=== PATIENT | female | born 1940 | race Caucasian/White ===

== ENCOUNTER 2020-09-26 23:02 | Observation (INO) | payer MEDICARE ==
--- NOTE | 2020-09-27 00:01 | ER Document Report ---
ED Medical Screen (RME) - General Chief Complaint: Fall Injury Stated Complaint: POSSIBLE CHEST INJURY Time Seen by Provider: 09/26/20 23:42 Mode of Arrival: Wheelchair Information source: Patient Notes: 80-year-old female presented to ED for complaint of fall with pain to her abdomen pelvis and chest. She states she fell landing against her dresser about 7 PM. She states she took her Xarelto at 6 PM. She states she has a history of high blood pressure cholesterol and TIA. She is having significant pain to the lower chest and upper abdomen. I did consult Dr. Avalos who recommended labs and a CT abdomen pelvis chest trauma protocol IV contrasted. He states this patient should not wait for the labs she needs to get the CT done promptly. I have greeted and performed a rapid initial assessment of this patient. A comprehensive ED assessment and evaluation of the patient, analysis of test results and completion of medical decision making process will be conducted by an additional ED providers. Physical Exam - Vital signs Vitals: Temp Pulse Resp BP Pulse Ox 99.1 F 148 H 24 H 157/101 H 99 09/27/20 00:05 09/27/20 00:05 09/27/20 00:05 09/27/20 00:05 09/27/20 00:05 Course - Vital Signs Vital signs: Temp Pulse Resp BP Pulse Ox 99.1 F 148 H 24 H 157/101 H 99 09/27/20 00:05 09/27/20 00:05 09/27/20 00:05 09/27/20 00:05 09/27/20 00:05
[2020-09-27 00:37] LABS: ABSOLUTE EOSINOPHILS # (AUTO) 0.1 10^3/uL (0.0-0.6); ABSOLUTE LYMPHOCYTES (AUTO) 1.1 10^3/uL (0.5-4.7); ABSOLUTE MONOCYTES (AUTO) 0.6 10^3/uL (0.1-1.4); ABSOLUTE NEUT (AUTO) 6.4 10^3/uL (1.7-8.2); BASOPHILS % (AUTO) 0.3 % (0-2); EOSINOPHILS % (AUTO) 1.4 % (0-6); HEMATOCRIT 38.1 % (36.0-47.0); HEMOGLOBIN 13.2 g/dL (12.0-15.5); LYMPHOCYTES % (AUTO) 13.7 % (13-45); MEAN CORPUSCULAR HEMOGLOBIN 31.4 pg (27.0-33.4); MEAN CORPUSCULAR HGB CONC 34.6 g/dL (32.0-36.0); MEAN CORPUSCULAR VOLUME 91 fl (80-97); MONOCYTES % (AUTO) 6.8 % (3-13); PLATELET COUNT 256 10^3/uL (150-450); RED BLOOD COUNT 4.19 10^6/uL (3.72-5.28); RED CELL DISTRIBUTION WIDTH 13.9 % (11.5-14.0); SEGMENTED NEUTROPHILS % (AUTO) 77.8 % (42-78); TOTAL CELLS COUNTED % (AUTO) 100 %; WHITE BLOOD COUNT 8.3 10^3/uL (4.0-10.5)
[2020-09-27 00:51] LABS: INTERNATIONAL RATION (INR) 2.03
[2020-09-27 00:52] LABS: PARTIAL THROMBOPLASTIN TIME 57.6 SEC (23.5-35.8)
[2020-09-27 00:57] LABS: ALBUMIN 4.3 g/dL (3.5-5.0); ALKALINE PHOSPHATASE 116 U/L (38-126); ANION GAP 10 (5-19); ASPARTATE AMINO TRANSFERASE 34 U/L (14-36); BILIRUBIN,DIRECT 0.3 mg/dL (0.0-0.4); BILIRUBIN,TOTAL 0.4 mg/dL (0.2-1.3); BLOOD UREA NITROGEN 14 mg/dL (7-20); CARBON DIOXIDE 28 mmol/L (22-30); CHLORIDE 100 mmol/L (98-107); GLUCOSE 139 mg/dL (75-110); POTASSIUM 4.2 mmol/L (3.6-5.0); TOTAL PROTEIN 7.8 g/dL (6.3-8.2)
--- NOTE | 2020-09-27 01:08 | RADIOLOGY REPORT (SQ) ---
CT chest, abdomen and pelvis with contrast on 09/27/2020 at 12:24 AM CLINICAL INDICATION: Fall, patient on blood thinners, per protocol for mechanism of injury TECHNIQUE: Multiple axial images are obtained throughout the chest, abdomen and pelvis following the administration of IV contrast. This exam was performed according to our departmental dose-optimization program, which includes automated exposure control, adjustment of the mA and/or kV according to patient size and/or use of iterative reconstruction technique. Total DLP is 683.63 mGy*cm. COMPARISON: None FINDINGS: CHEST: Coronary artery calcifications and other vascular calcifications are noted. Cardiomegaly is noted. There is no pleural or pericardial effusion. The patient is status post right mastectomy. Mild opacity in the anterior right lung likely represents mild post radiation changes. Emphysematous changes of the lungs are noted. There is nodular opacity in the medial anterior right upper lobe seen well on coronal images 29 through 34. While this may represent a nodular area of atelectasis and/or scarring, malignant etiology is not excluded especially in this patient with presumed prior history of right breast cancer. Correlation with any of the patient's old imaging or short-term follow-up will be recommended. This measures approximately 1.3 x 1.1 cm on coronal image 31 and therefore should be large enough for PET/CT if indicated. There is mild bilateral dependent and basilar atelectasis. There is also somewhat of a nodular opacity in the anterior right upper lobe seen best on axial image 12 and coronal image 41. This also could represent an area of nodular atelectasis or scarring but also needs correlation with any of the patient's old imaging and/or appropriate follow-up. There is also a 6 mm nodule in the right lower lobe seen best on coronal image 65 that also will need correlation with the patient's old imaging and appropriate follow-up. The lungs are otherwise clear. There is no thoracic adenopathy by CT size criteria. There is no mediastinal hemorrhage or evidence of aortic injury. Degenerative changes are noted in the right shoulder. No acute bony abnormality of the thorax is noted. ABDOMEN: A few small hepatic cysts are noted. Small bilateral renal cysts are noted. Vascular calcifications are noted. Solid abdominal organs are otherwise unremarkable. There is no abdominal adenopathy. There is no free fluid or free air within the abdomen. The abdominal portion of the GI tract is unremarkable. Pelvis: Pelvic organs appear unremarkable by CT. No free fluid is noted in the pelvis. There is no pelvic adenopathy. There is diverticulosis. The pelvic portion of the GI tract including the appendix is otherwise unremarkable. Degenerative changes are noted in the spine. There is grade 1 spondylolisthesis at L3-4 and L4-5 secondary to degenerative facet disease. There are sclerotic lesions within T6, T7, T12, L2 and L4 that are worrisome for bony metastatic disease. It is unknown if this is treated or active disease and again correlation with any of the patient's old imaging or appropriate follow-up is recommended. No acute bony abnormality is noted. IMPRESSION: 1. No evidence of acute traumatic injury in the chest, abdomen or pelvis. 2. Findings in the lungs and bones as above that may be related to the patient's presumed history of prior right breast malignancy. Recommend appropriate follow-up with correlation with any of the patient's prior imaging or short-term follow-up imaging to include possibly PET/CT if indicated. 3. Diverticulosis. 4. Emphysema.
[2020-09-27] MEDS ORDERED: NORMAL SALINE 1000 ML 1,000 ML IV ONE (02:11)
[2020-09-27] MEDS ORDERED: HYDROCODONE/ACETAMINOPHEN 5-325 MG TABLET PO ONE (02:11)
[2020-09-27] MEDS ORDERED: MORPHINE SULFATE 10 MG/ML INJ IV ONE (02:17)
[2020-09-27] MEDS ORDERED: ONDANSETRON HCL INJ/PF 4 MG/2 ML SDV IV ONE (02:17)
[2020-09-27 02:21] LABS: APPEARANCE,URINE CLEAR; BILIRUBIN,URINE NEGATIVE (NEGATIVE); COLOR,URINE YELLOW; GLUCOSE, URINE NEGATIVE (NEGATIVE); KETONES,URINE NEGATIVE (NEGATIVE); LEUKOCYTE ESTERASE,URINE NEGATIVE (NEGATIVE); NITRITE,URINE NEGATIVE (NEGATIVE); PROTEIN,URINE NEGATIVE (NEGATIVE); URINE SPECIFIC GRAVITY 1.032; UROBILINOGEN,URINE NEGATIVE mg/dL (<2.0)
--- NOTE | 2020-09-27 02:23 | ER Document Report ---
ED Fall - General Chief Complaint: Fall Stated Complaint: POSSIBLE CHEST INJURY Time Seen by Provider: 09/26/20 23:42 Mode of Arrival: Wheelchair Information source: Patient Notes: 80-year-old female presents to ED for complaint of fall at home. She states she fell landing on her lower chest upper abdomen. She states she fell landing against a dresser about 7 PM. She states she had already taken her Xarelto about 6 PM. She does have a history of high blood pressure A. fib cholesterol a nd TIA. We will get a CT IV contrasted chest abdomen and pelvis which did not show any new traumatic injuries. It did show some nodules in the lungs that patient states she already knew about. She does have a history of breast cancer with a right mastectomy and was moved to this area from [place] so that her daughter could monitor her and help her to get help with the possible metastatic disease. Patient is alert oriented respirations regular nonlabored speaking in full sentences. Her heart rate is running in the 140s to 150s. I have ordered morphine 4 mg, Zofran 4 mg, and IV fluids. I have also ordered Roberta. I did discuss all of this with Dr. Avalos. He stated if we can get her right down in the 80s to 90s that she can go home but that if we cannot she may need to be admitted. Constitutional: Negative for fever. HENT: Negative for sore throat. Eyes: Negative for visual changes. Cardiovascular: Pain to the lower chest upper abdomen from her fall. She does have bruises to the sternal area of her chest. She is in A. fib at a rate of 148 fluctuating between 135 and 160 on the monitor while I was in the room. Respiratory: Negative for shortness of breath. Gastrointestinal: She states she has had some upper abdominal pain. There is no acute changes on the CT of the abdomen pelvis Genitourinary: Negative for dysuria. Musculoskeletal: Patient does not complain of any pain in the back but she does have some degenerative changes noted on the CT Skin: She does states she has bruising to the chest area and there is some mild bruising to the sternal area of the chest Neurological: Negative for headaches, weakness or numbness. 10 point ROS negative except as marked above and in HPI. VITAL SIGNS: Within normal limits. GENERAL: No acute distress, non-toxic appearance. HEAD: Normal with no signs of head trauma. EYES: PERRLA, EOMI, conjunctiva normal, no discharge. EARS: Hearing grossly intact. NOSE: Normal. THROAT: Oropharynx is normal. NECK: Normal range of motion, no tenderness, supple, no lymphadenopathy, No adenopathy, no JVD. CHEST: Clear breath sounds bilaterally. No wheezes, rales, or rhonchi. CARDIAC: Atrial fibrillation between 135-170 she is tender to palpation. She does have a right mastectomy old site. She is in significant tenderness from the fall ABDOMEN: Abdomen tender to palpation but it is soft no bruises noted on the abdomen no pulsatile masses noted GASTROINTESTINAL: Bowel sounds normal GENITOURINARY: Normal, No tenderness LYMPATHTIC: No lymphadenopathy noted. MUSCULOSKELETAL: Good range of motion of all major joints. Extremities without clubbing, cyanosis or edema. NEUROLOGICAL: Alert and oriented x 3. No focal sensory or strength deficits. Speech normal. Follows commands appropriately. PSYCHIATRIC: Normal Affect, judgement and mood. SKIN: Mild bruising noted to the sternal area from her fall TRAVEL OUTSIDE OF THE [place] IN LAST 30 DAYS: No - HPI Occurred: This evening - 7 PM Where: Home, Indoors Context: Tripped Associated symptoms: None Location of injury/pain: Abdomen, Chest, Pelvic Quality of pain: Sharp Pain Level: 4 - Related data Allergies/Adverse Reactions: No Known Allergies Allergy (Verified 09/27/20 04:55) Home Medications: xarelto Past Medical History - General Information source: Patient - Social History Smoking Status: Former Smoker Chew tobacco use (# tins/day): No Drug Abuse: None Lives with: Family Family History: Reviewed & Not Pertinent Patient has suicidal ideation: No Patient has homicidal ideation: No - Past Medical History Cardiac Medical History: Reports: Hx Atrial Fibrillation, Hx Hypercholesterolemia, Hx Hypertension Pulmonary Medical History: Reports: Hx COPD, Hx Pneumonia EENT Medical History: Reports: None Neurological Medical History: Reports: Hx Migraine, Other - TIA Endocrine Medical History: Reports: None Renal/ Medical History: Reports: None Malignancy Medical History: Reports: Hx Breast Cancer - Right mastectomy GI Medical History: Reports: None Musculoskeletal Medical History: Reports Hx Arthritis, Reports Hx Musculoskeletal Trauma Skin Medical History: Reports None Psychiatric Medical History: Reports: None Traumatic Medical History: Reports: None Infectious Medical History: Reports: None Past Surgical History: Reports: Hx Breast Surgery, Hx Mastectomy Physical Exam - Vital signs Vitals: Temp Pulse Resp BP Pulse Ox 99.1 F 148 H 24 H 157/101 H 99 09/27/20 00:05 09/27/20 00:05 09/27/20 00:05 09/27/20 00:05 09/27/20 00:05 Course - Re-evaluation Re-evalutation: 09/27/20 08:10 Discussed labs assessment and pulse rate with Dr. Avalos. He did recommend CT abdomen pelvis just after explaining that she does not have pain to the abdomen and chest with a pulse of 148 and history of A. fib. The abdomen pelvis and chest did not show any acute changes she was treated with metoprolol IV x2 for her A. fib with RVR and the rate was able to come down to 106. I did call the hospitalist he did agree he will come down and evaluate the patient. When he did come down and evaluate the patient he stated he would admit the patient. He was admitted to telemetry. This patient had just recently moved from [place] to this area to live with her daughter creasing health conditions. Not established with a lens silverer as yet. She also needs to establish with an oncologist for her history of breast cancer with positive nodules in the lungs. These were discussed with Dr. Mueller. - Vital Signs Vital signs: Temp Pulse Resp BP Pulse Ox 99.1 F 148 H 23 H 120/92 H 93 09/27/20 00:05 09/27/20 00:05 09/27/20 05:07 09/27/20 05:07 09/27/20 05:07 - Laboratory Results Result Diagrams: 09/27/20 00:13 09/27/20 00:13 Laboratory Results Interpreted: 09/27/20 09/27/20 00:13 00:13 PT 23.0 H APTT 57.6 H Glucose 139 H Critical Laboratory Results Reviewed: No Critical Results - Radiology Results Critical Radiology Results Reviewed: No Critical Results Discharge - Discharge Clinical Impression: Atrial fibrillation with RVR, History of TIA (transient ischemic attack), History of breast cancer Fall Qualifiers: Encounter type: initial encounter Qualified Code(s): W19.XXXA - Unspecified fall, initial encounter Hypertension Qualifiers: Hypertension type: unspecified Qualified Code(s): I10 - Essential (primary) hypertension Chest wall contusion Qualifiers: Encounter type: initial encounter Laterality: unspecified laterality Qualified Code(s): S20.219A - Contusion of unspecified front wall of thorax, initial encounter Disposition: ADMITTED INPATIENT Admitting Provider: [facility] Unit Admitted: Telemetry
[2020-09-27] MEDS ORDERED: METOPROLOL TARTRATE PF/INJ 5 MG/5 ML SDV IV ONE ×2 (03:51→04:40)
[2020-09-27] MEDS ORDERED: OXYCODONE-ACETAMINOPHEN 5-325 MG TABLET PO PRN (05:54)
[2020-09-27] MEDS ORDERED: ONDANSETRON HCL INJ/PF 4 MG/2 ML SDV IV PRN ×2 (05:54→10:00)
[2020-09-27] MEDS ORDERED: ACETAMINOPHEN 325 MG TABLET PO PRN (05:54)
--- NOTE | 2020-09-27 06:18 | PDOC H&P ---
History of Present Illness Admission Date/PCP: THOM GARZA MD Patient complains of: Fall History of Present Illness: KUNAL ABEBE is a 80 year old female with a history of TIA, A. fib, hyperlipidemia, hypertension and breast cancer status post right mastectomy now presents to the ED after she had a fall last night while trying to put on her pajama. She states that she tripped and fell on a dresser and heart hair anterior chest and abdominal area. She denies any dizziness/lightheadedness, chest pain, palpitation or shortness of breath prior to fall. She states that she occasionally feels racing of her heart but currently denies any palpitation. She feels pain around here anterior lower chest and epigastric area when she takes a deep breath or cough. She denies any nausea, vomiting, diarrhea, or any change in her urinary habits. She states that she is compliant with her medication. On arrival to the ED patient was found to be A. fib with RVR with a heart rate in the 140s and 150s. She was given metoprolol 5 mg IV x2 improved here heart rate to the 110s. Currently she denies any dizziness, palpitation, chest pain apart from the injury site. Patient moved from [place] and is new to the area. Past Medical History Cardiac Medical History: Reports: Atrial Fibrillation, Hyperlipidema, Hyper tension Pulmonary Medical History: Reports: Chronic Obstructive Pulmonary Disease (COPD), Pneumonia EENT Medical History: Reports: None Neurological Medical History: Reports: Migraine, Other - TIA Endocrine Medical History: Reports: None Renal/ Medical History: Reports: None Malignancy Medical History: Reports: Breast Cancer - Right mastectomy GI Medical History: Reports: None Musculoskeltal Medical History: Reports: Arthritis Skin Medical History: Reports: None Psychiatric Medical History: Reports: None Traumatic Medical History: Reports: None Infectious Medical History: Reports: None Past Surgical History Past Surgical History: Reports: Mastectomy Social History Information Source: Patient Lives with: Family Smoking Status: Former Smoker Electronic Cigarette use?: No Frequency of Alcohol Use: Occasional Hx Recreational Drug Use: No Drugs: None - Advance Directive Resuscitation Status: Full Code Family History Family History: Reviewed & Not Pertinent Parental Family History Reviewed: Yes Children Family History Reviewed: Yes Sibling(s) Family History Reviewed.: Yes Medication/Allergy Allergies/Adverse Reactions: No Known Allergies Allergy (Verified 09/27/20 04:55) Review of Systems Constitutional: ABSENT: chills, fever(s), headache(s), weight gain, weight loss Eyes: ABSENT: visual disturbances Ears: ABSENT: hearing changes Nose, Mouth, and Throat: ABSENT: headache(s), mouth pain, sore throat Cardiovascular: ABSENT: dyspnea on exertion, edema, orthropnea, palpitations Respiratory: ABSENT: cough, hemoptysis Gastrointestinal: ABSENT: constipation, diarrhea, hematemesis, hematochezia, nausea, vomiting Genitourinary: ABSENT: dysuria, hematuria Musculoskeletal: ABSENT: joint swelling Integumentary: ABSENT: rash, wounds Neurological: ABSENT: abnormal gait, abnormal speech, confusion, dizziness, focal weakness, syncope Psychiatric: ABSENT: anxiety, depression, homidical ideation, suicidal ideation Endocrine: ABSENT: cold intolerance, heat intolerance, polydipsia, polyuria Hematologic/Lymphatic: ABSENT: easy bleeding, easy bruising Physical Exam Vital Signs: Temp Pulse Resp BP Pulse Ox 99.1 F 148 H 23 H 120/92 H 93 09/27/20 00:05 09/27/20 00:05 09/27/20 05:07 09/27/20 05:07 09/27/20 05:07 Intake & Output 09/25/20 09/26/20 09/27/20 06:59 06:59 06:59 Intake Total 1000 Balance 1000 Weight 43.3 kg Additional comments: GENERAL APPEARANCE: Alert and oriented x3, in no acute distress HEENT: Normocephalic and atraumatic. No scleral icterus. Moist oral mucosa NECK: Supple. No lymphadenopathy or tenderness. No carotid bruit. No JVD CHEST: Symmetric. Has mild tenderness to palpation at lower sternal area LUNGS: Clear with good air entry bilaterally. No wheezing or crackles HEART: Irregularly irregular rhythm, tachycardic with normal S1 and S2. No murmurs, gallops, or rubs. ABDOMEN: Flat, soft, active bowel sounds, has mild tenderness around epigastric area and lower sternal normal guarding, rigidity or or rebound tenderness. No organomegaly detected. EXTREMITIES: No cyanosis, clubbing, or edema. MUSCULOSKELETAL: No deformity, atrophy or swelling noted PSYCHIATRIC: Recent and remote memory is intact. Appropriate mood and affect. SKIN: Warm, dry, and well perfused. No lesions or rashes are noted. NEUROLOGIC: No focal sensory or motor deficits are noted. Results Laboratory Results: 09/27/20 00:13 09/27/20 00:13 09/27/20 09/27/20 09/27/20 00:13 00:13 01:43 WBC 8.3 RBC 4.19 Hgb 13.2 Hct 38.1 MCV 91 MCH 31.4 MCHC 34.6 RDW 13.9 Plt Count 256 Seg Neutrophils % 77.8 Sodium 138.3 Potassium 4.2 Chloride 100 Carbon Dioxide 28 Anion Gap 10 BUN 14 Creatinine 0.73 Est GFR ( Amer) > 60 Glucose 139 H Calcium 10.0 Total Bilirubin 0.4 AST 34 Alkaline Phosphatase 116 Total Protein 7.8 Albumin 4.3 Urine Color YELLOW Urine Appearance CLEAR Urine pH 7.0 Ur Specific [place] 1.032 Urine Protein NEGATIVE Urine Glucose (UA) NEGATIVE Urine Ketones NEGATIVE Urine Blood NEGATIVE Urine Nitrite NEGATIVE Ur Leukocyte Esterase NEGATIVE Urine WBC (Auto) 0 Urine RBC (Auto) 0 Impressions: Abdomen/Pelvis CT 09/26/20 23:51 IMPRESSION: 1. No evidence of acute traumatic injury in the chest, abdomen or pelvis. 2. Findings in the lungs and bones as above that may be related to the patient's presumed history of prior right breast malignancy. Recommend appropriate follow-up with correlation with any of the patient's prior imaging or short-term follow-up imaging to include possibly PET/CT if indicated. 3. Diverticulosis. 4. Emphysema. Chest CT 09/26/20 23:51 IMPRESSION: 1. No evidence of acute traumatic injury in the chest, abdomen or pelvis. 2. Findings in the lungs and bones as above that may be related to the patient's presumed history of prior right breast malignancy. Recommend appropriate follow-up with correlation with any of the patient's prior imaging or short-term follow-up imaging to include possibly PET/CT if indicated. 3. Diverticulosis. 4. Emphysema. Assessment and Plan - Diagnosis (1) Atrial fibrillation with RVR Is this a current diagnosis for this admission?: Yes Plan: Patient currently presents after sustaining a fall Denies any dizziness or chest pain apart from the site of injury On presentation EKG showed A. fib with RVR with heart rate of 145 Was given metoprolol 5 mg IV x2 at the ED and heart rate improved to 110s Start the patient on 25 mg metoprolol every 6 hourly Will readjust the dose of metoprolol depending of the level of rate control Follow-up with troponins, TSH level (2) Fall Qualifiers: Encounter type: initial encounter Qualified Code(s): W19.XXXA - Unspecified fall, initial encounter Is this a current diagnosis for this admission?: Yes Plan: Appears to be a mechanical fall, patient reports and fell down when changing clothing Still reports lower sternal and epigastric area pain CT chest, abdomen and pelvis showed no acute traumatic findings Pain likely contributing to elevated heart rate Controlled pain with Percocet 5 mg every 6 hourly as needed (3) Hypertension Qualifiers: Hypertension type: unspecified Qualified Code(s): I10 - Essential (primary) hypertension Is this a current diagnosis for this admission?: Yes Plan: Currently blood pressure is well controlled We will continue lisinopril at home dose Currently on metoprolol for A. fib to control rate Continue monitoring vital signs and low-salt diet (4) Hyperlipidemia Is this a current diagnosis for this admission?: Yes Plan: Continue atorvastatin (5) History of TIA (transient ischemic attack) Is this a current diagnosis for this admission?: Yes Plan: Currently has no any focal neurologic deficits Continue aspirin and statin for secondary prevention (6) History of breast cancer Is this a current diagnosis for this admission?: Yes Plan: Status post right mastectomy 17 years back Currently has no sign of recurrence - Time Time Spent with patient: 35 or more minutes Total Critical Time (Minutes): 45 Medications reviewed and adjusted accordingly: Yes Anticipated Discharge Disposition: Home, Self Care Anticipated Discharge Timeframe: within 48 hours - Inpatient Certification Based on my medical assessment, after consideration of the patient's comorbidities, presenting symptoms, or acuity I expect that the services needed warrant INPATIENT care.: Yes I certify that my determination is in accordance with my understanding of Medicare's requirements for reasonable and necessary INPATIENT services [42 CFR 412.3e].: Yes Medical Necessity: Significant Comorbidiites Make Outpatient Treatment Too Risky, Need For Continuous Telemetry Monitoring, Need for Pain Control, Risk of Complication if Not Cared For in Hospital Post Hospital Care: D/C or Transfer Summary
[2020-09-27] MEDS: METOPROLOL TARTRATE 25 MG TABLET PO SCH ×3 (06:40→17:22)
--- NOTE | 2020-09-27 07:53 | EKG REPORT ---
SEVERITY:- ABNORMAL ECG - ATRIAL FIBRILLATION, V-RATE 116-172 : Confirmed by: Akash Estrada 27-Sep-2020 07:53:23
[2020-09-27] MEDS: LISINOPRIL 10 MG TABLET PO SCH (09:04)
[2020-09-27] MEDS: FAMOTIDINE 20 MG TABLET PO SCH (09:04)
[2020-09-27] MEDS: CHOLECALCIFEROL (D3) 1,000 UNIT (25 MCG) TABLET PO SCH (09:04)
[2020-09-27] MEDS: CALCIUM CARBONATE 600 MG TABLET PO SCH (09:04)
[2020-09-27] MEDS ORDERED: RIVAROXABAN 10 MG TABLET PO SCH (17:00)
--- NOTE | 2020-09-27 19:45 | PDOC PROGRESS REPORT ---
Subjective Date:: 09/27/20 Subjective:: Patient was seen and examined at bedside, still has chest wall pain from where s he hit her chest during the fa. No chest heaviness, no palpitations. Afebrile, good appetite Reason For Visit: FALL,AFIB WITH RVR,HISTORY OF TIA,HISTORY BREAST Physical Exam Vital Signs: Temp Pulse Resp BP Pulse Ox 98.3 F 118 H 18 132/94 H 96 09/27/20 16:55 09/27/20 16:55 09/27/20 16:55 09/27/20 16:55 09/27/20 16:55 Intake & Output 09/26/20 09/27/20 09/28/20 06:59 06:59 06:59 Intake Total 1000 1000 Balance 1000 1000 Weight 43.3 kg General appearance: PRESENT: no acute distress, cooperative Head exam: PRESENT: atraumatic, normocephalic Eye exam: PRESENT: EOMI, PERRLA Mouth exam: PRESENT: moist Neck exam: PRESENT: full ROM Respiratory exam: PRESENT: clear to auscultation liam, symmetrical, unlabored Cardiovascular exam: PRESENT: irregular rhythm, +S1, +S2, other - chest wall tenderness Pulses: PRESENT: +2 pedal pulses bilateral GI/Abdominal exam: PRESENT: normal bowel sounds, soft. ABSENT: rebound, tenderness Extremities exam: PRESENT: full ROM Musculoskeletal exam: PRESENT: full ROM Neurological exam: PRESENT: alert, oriented to person, oriented to place, oriented to time, oriented to situation Skin exam: PRESENT: normal color Results Laboratory Results: 09/27/20 00:13 09/27/20 00:13 09/27/20 09/27/20 09/27/20 00:13 00:13 00:13 WBC 8.3 RBC 4.19 Hgb 13.2 Hct 38.1 MCV 91 MCH 31.4 MCHC 34.6 RDW 13.9 Plt Count 256 Seg Neutrophils % 77.8 Sodium 138.3 Potassium 4.2 Chloride 100 Carbon Dioxide 28 Anion Gap 10 BUN 14 Creatinine 0.73 Est GFR ( Amer) > 60 Glucose 139 H Calcium 10.0 Total Bilirubin 0.4 AST 34 Alkaline Phosphatase 116 Total Protein 7.8 Albumin 4.3 TSH 2.95 Urine Color Urine Appearance Urine pH Ur Specific [place] Urine Protein Urine Glucose (UA) Urine Ketones Urine Blood Urine Nitrite Ur Leukocyte Esterase Urine WBC (Auto) Urine RBC (Auto) 09/27/20 01:43 WBC RBC Hgb Hct MCV MCH MCHC RDW Plt Count Seg Neutrophils % Sodium Potassium Chloride Carbon Dioxide Anion Gap BUN Creatinine Est GFR ( Amer) Glucose Calcium Total Bilirubin AST Alkaline Phosphatase Total Protein Albumin TSH Urine Color YELLOW Urine Appearance CLEAR Urine pH 7.0 Ur Specific [place] 1.032 Urine Protein NEGATIVE Urine Glucose (UA) NEGATIVE Urine Ketones NEGATIVE Urine Blood NEGATIVE Urine Nitrite NEGATIVE Ur Leukocyte Esterase NEGATIVE Urine WBC (Auto) 0 Urine RBC (Auto) 0 09/27/20 09/27/20 00:13 00:13 Creatine Kinase 43 Troponin I < 0.012 Impressions: Abdomen/Pelvis CT 09/26/20 23:51 IMPRESSION: 1. No evidence of acute traumatic injury in the chest, abdomen or pelvis. 2. Findings in the lungs and bones as above that may be related to the patient's presumed history of prior right breast malignancy. Recommend appropriate follow-up with correlation with any of the patient's prior imaging or short-term follow-up imaging to include possibly PET/CT if indicated. 3. Diverticulosis. 4. Emphysema. Chest CT 09/26/20 23:51 IMPRESSION: 1. No evidence of acute traumatic injury in the chest, abdomen or pelvis. 2. Findings in the lungs and bones as above that may be related to the patient's presumed history of prior right breast malignancy. Recommend appropriate follow-up with correlation with any of the patient's prior imaging or short-term follow-up imaging to include possibly PET/CT if indicated. 3. Diverticulosis. 4. Emphysema. Assessment and Plan - Diagnosis (1) Atrial fibrillation with RVR Is this a current diagnosis for this admission?: Yes Plan: Improved HR 115 Patient currently presents after sustaining a fall Denies any dizziness or chest pain apart from the site of injury On presentation EKG showed A. fib with RVR with heart rate of 145 Was given metoprolol 5 mg IV x2 at the ED and heart rate improved to 110s Start the patient on 25 mg metoprolol every 6 hourly Will readjust the dose of metoprolol depending of the level of rate control troponin negative Possible discharge tomorrow (2) Fall Qualifiers: Encounter type: initial encounter Qualified Code(s): W19.XXXA - Unspecified fall, initial encounter Is this a current diagnosis for this admission?: Yes Plan: Appears to be a mechanical fall, patient reports and fell down when changing clothing Still reports lower sternal and epigastric area pain CT chest, abdomen and pelvis showed no acute traumatic findings Pain likely contributing to elevated heart rate Controlled pain with Percocet 5 mg every 6 hourly as needed (3) History of TIA (transient ischemic attack) Is this a current diagnosis for this admission?: Yes Plan: Currently has no any focal neurologic deficits Continue aspirin and statin for secondary prevention (4) History of breast cancer Is this a current diagnosis for this admission?: Yes Plan: Status post right mastectomy 17 years back Currently has no sign of recurrence (5) Hyperlipidemia Is this a current diagnosis for this admission?: Yes Plan: Continue atorvastatin (6) Hypertension Qualifiers: Hypertension type: unspecified Qualified Code(s): I10 - Essential (primary) hypertension Is this a current diagnosis for this admission?: Yes Plan: Currently blood pressure is well controlled We will continue lisinopril at home dose Currently on metoprolol for A. fib to control rate Continue monitoring vital signs and low-salt diet - Time Time Spent with patient: 15-24 minutes Medications reviewed and adjusted accordingly: Yes Anticipated Discharge Disposition: Home, Self Care Anticipated Discharge Timeframe: within 24 hours
[2020-09-27] MEDS ORDERED: ATORVASTATIN CALCIUM 20 MG TABLET PO SCH (22:00)
[2020-09-28] MEDS: METOPROLOL TARTRATE 25 MG TABLET PO SCH ×2 (00:18→06:05)
[2020-09-28] MEDS: FAMOTIDINE 20 MG TABLET PO SCH ×2 (00:18→09:12)
[2020-09-28 05:15] LABS: ABSOLUTE EOSINOPHILS # (AUTO) 0.1 10^3/uL (0.0-0.6); ABSOLUTE LYMPHOCYTES (AUTO) 1.5 10^3/uL (0.5-4.7); ABSOLUTE MONOCYTES (AUTO) 0.6 10^3/uL (0.1-1.4); ABSOLUTE NEUT (AUTO) 3.1 10^3/uL (1.7-8.2); BASOPHILS % (AUTO) 0.6 % (0-2); EOSINOPHILS % (AUTO) 1.1 % (0-6); HEMATOCRIT 35.7 % (36.0-47.0); HEMOGLOBIN 12.3 g/dL (12.0-15.5); LYMPHOCYTES % (AUTO) 29.3 % (13-45); MEAN CORPUSCULAR HEMOGLOBIN 31.6 pg (27.0-33.4); MEAN CORPUSCULAR HGB CONC 34.5 g/dL (32.0-36.0); MEAN CORPUSCULAR VOLUME 92 fl (80-97); MONOCYTES % (AUTO) 11.2 % (3-13); PLATELET COUNT 219 10^3/uL (150-450); RED BLOOD COUNT 3.89 10^6/uL (3.72-5.28); RED CELL DISTRIBUTION WIDTH 14.1 % (11.5-14.0); SEGMENTED NEUTROPHILS % (AUTO) 57.8 % (42-78); TOTAL CELLS COUNTED % (AUTO) 100 %; WHITE BLOOD COUNT 5.3 10^3/uL (4.0-10.5)
[2020-09-28 05:36] LABS: ANION GAP 6 (5-19); BLOOD UREA NITROGEN 13 mg/dL (7-20); CALCIUM 9.2 mg/dL (8.4-10.2); CARBON DIOXIDE 28 mmol/L (22-30); CHLORIDE 102 mmol/L (98-107); GLUCOSE 110 mg/dL (75-110); POTASSIUM 4.2 mmol/L (3.6-5.0)
[2020-09-28] MEDS ORDERED: AMLODIPINE BESYLATE 10 MG TABLET PO ONE (09:00)
[2020-09-28] MEDS: LISINOPRIL 10 MG TABLET PO SCH (09:11)
[2020-09-28] MEDS: CHOLECALCIFEROL (D3) 1,000 UNIT (25 MCG) TABLET PO SCH (09:11)
[2020-09-28] MEDS: CALCIUM CARBONATE 600 MG TABLET PO SCH (09:12)
[2020-09-28] MEDS ORDERED: METOPROLOL TARTRATE PF/INJ 5 MG/5 ML SDV IV ONE (09:13)
[2020-09-28 10:06] VITALS: BP 144/83
--- NOTE | 2020-09-28 17:20 | PDOC DISCHARGE SUMMARY ---
Impression - Admit/DC Date/PCP Admission Date/Primary Care Provider: 09/27/20 06:30 THOM GARZA MD Discharge Date: 09/28/20 - Discharge Diagnosis (1) Atrial fibrillation with RVR Is this a current diagnosis for this admission?: Yes (2) Fall Is this a current diagnosis for this admission?: Yes (3) History of TIA (transient ischemic attack) Is this a current diagnosis for this admission?: Yes (4) History of breast cancer Is this a current diagnosis for this admission?: Yes (5) Hyperlipidemia Is this a current diagnosis for this admission?: Yes (6) Hypertension Is this a current diagnosis for this admission?: Yes - Assessment Summary: (1) Atrial fibrillation with RVR Is this a current diagnosis for this admission?: Yes Plan: Improved HR 115 Patient currently presents after sustaining a fall Denies any dizziness or chest pain apart from the site of injury On presentation EKG showed A. fib with RVR with heart rate of 145 Was given metoprolol 5 mg IV x2 at the ED and heart rate improved to 110s Start the patient on 25 mg metoprolol every 6 hourly Will readjust the dose of metoprolol depending of the level of rate control troponin negative Possible discharge tomorrow (2) Fall Qualifiers: Encounter type: initial encounter Qualified Code(s): W19.XXXA - Unspecified fall, initial encounter Is this a current diagnosis for this admission?: Yes Plan: Appears to be a mechanical fall, patient reports and fell down when changing clothing Still reports lower sternal and epigastric area pain CT chest, abdomen and pelvis showed no acute traumatic findings Pain likely contributing to elevated heart rate Controlled pain with Percocet 5 mg every 6 hourly as needed (3) History of TIA (transient ischemic attack) Is this a current diagnosis for this admission?: Yes Plan: Currently has no any focal neurologic deficits Continue aspirin and statin for secondary prevention (4) History of breast cancer Is this a current diagnosis for this admission?: Yes Plan: Status post right mastectomy 17 years back Currently has no sign of recurrence (5) Hyperlipidemia Is this a current diagnosis for this admission?: Yes Plan: Continue atorvastatin (6) Hypertension Qualifiers: Hypertension type: unspecified Qualified Code(s): I10 - Essential (primary) hypertension Is this a current diagnosis for this admission?: Yes Plan: Currently blood pressure is well controlled We will continue lisinopril at home dose Currently on metoprolol for A. fib to control rate Continue monitoring vital signs and low-salt diet - Additional Information Resuscitation Status: Full Code Discharge Diet: As Tolerated Discharge Activity: Activity As Tolerated Referrals: THOM GARZA MD [Primary Care Provider] - 09/29/20 3:15 pm Prescriptions: Carvedilol Phosphate [Carvedilol ER] 40 mg PO DAILY 30 Days #30 tab Home Medications: Alendronate Sodium 70 mg PO MO 09/27/20 Atorvastatin Calcium [Lipitor 20 mg Tablet] 20 mg PO DAILY 09/27/20 Calcium Carbonate [Calcium] 600 mg PO DAILY 09/27/20 Cholecalciferol (Vitamin D3) [Vitamin D3 1000 Unit Tablet] 2,000 unit PO DAILY 09/27/20 Latanoprost [Xalatan] 1 drop OU DAILY 09/27/20 Lisinopril 20 mg PO DAILY 09/27/20 Rivaroxaban [Xarelto 10 mg Tablet] 20 mg PO DAILY 09/27/20 Timolol Maleate/Pf [Timolol Maleate 0.5% Eye Drop] 1 drop OU BID 09/27/20 Carvedilol Phosphate [Carvedilol ER] 40 mg PO DAILY 30 Days #30 tab 09/28/20 History of Present Illiness History of Present Illness: KUNAL AEBBE is a 80 year old female, with a history of TIA, A. fib, hyperlipidemia, hypertension and breast cancer status post right mastectomy now presents to the ED after she had a fall last night while trying to put on her pajama. She states that she tripped and fell on a dresser and heart hair anterior chest and abdominal area. She denies any dizziness/lightheadedness, chest pain, palpitation or shortness of breath prior to fall. She states that she occasionally feels racing of her heart but currently denies any palpitation. She feels pain around here anterior lower chest and epigastric area when she takes a deep breath or cough. She denies any nausea, vomiting, diarrhea, or any change in her urinary habits. She states that she is compliant with her medication. On arrival to the ED patient was found to be A. fib with RVR with a heart rate in the 140s and 150s. She was given metoprolol 5 mg IV x2 improved here heart rate to the 110s. Currently she denies any dizziness, palpitation, chest pain apart from the injury site. Patient moved from [place] and is new to the area. Hospital Course Hospital Course: The patient remained stable al throughout the admission. HR went down to 110s, BP stable. No chest pain, no SOB. Patient was discharged on increased carvedilol dose and follow up with PCP. Physical Exam Vital Signs: Temp Pulse Resp BP Pulse Ox 98.5 F 96 17 144/83 H 95 09/28/20 10:03 09/28/20 10:03 09/28/20 10:03 09/28/20 10:03 09/28/20 10:03 Intake & Output 09/27/20 09/28/20 09/29/20 06:59 06:59 06:59 Intake Total 1000 1000 Balance 1000 1000 Weight 43.3 kg 43.3 kg General appearance: PRESENT: no acute distress, cooperative Head exam: PRESENT: atraumatic, normocephalic Eye exam: PRESENT: EOMI, PERRLA Mouth exam: PRESENT: moist Respiratory exam: PRESENT: clear to auscultation liam, symmetrical, unlabored Cardiovascular exam: PRESENT: RRR, +S1, +S2 GI/Abdominal exam: PRESENT: normal bowel sounds, soft. ABSENT: rebound, tenderness Extremities exam: PRESENT: full ROM Musculoskeletal exam: PRESENT: full ROM Neurological exam: PRESENT: alert, awake, oriented to person, oriented to place, oriented to time, oriented to situation Psychiatric exam: PRESENT: normal mood Skin exam: PRESENT: normal color Results Laboratory Results: WBC 5.3 10^3/uL (4.0-10.5) 09/28/20 04:52 RBC 3.89 10^6/uL (3.72-5.28) 09/28/20 04:52 Hgb 12.3 g/dL (12.0-15.5) 09/28/20 04:52 Hct 35.7 % (36.0-47.0) L 09/28/20 04:52 MCV 92 fl (80-97) 09/28/20 04:52 MCH 31.6 pg (27.0-33.4) 09/28/20 04:52 MCHC 34.5 g/dL (32.0-36.0) 09/28/20 04:52 RDW 14.1 % (11.5-14.0) H 09/28/20 04:52 Plt Count 219 10^3/uL (150-450) 09/28/20 04:52 Lymph % (Auto) 29.3 % (13-45) 09/28/20 04:52 [place] % (Auto) 11.2 % (3-13) 09/28/20 04:52 Eos % (Auto) 1.1 % (0-6) 09/28/20 04:52 Baso % (Auto) 0.6 % (0-2) 09/28/20 04:52 Absolute Neuts (auto) 3.1 10^3/uL (1.7-8.2) 09/28/20 04:52 Absolute Lymphs (auto) 1.5 10^3/uL (0.5-4.7) 09/28/20 04:52 Absolute Monos (auto) 0.6 10^3/uL (0.1-1.4) 09/28/20 04:52 Absolute Eos (auto) 0.1 10^3/uL (0.0-0.6) 09/28/20 04:52 Absolute Basos (auto) 0.0 10^3/uL (0.0-0.2) 09/28/20 04:52 Seg Neutrophils % 57.8 % (42-78) 09/28/20 04:52 PT 23.0 SEC (11.4-15.4) H 09/27/20 00:13 INR 2.03 09/27/20 00:13 APTT 57.6 SEC (23.5-35.8) H 09/27/20 00:13 Sodium 135.9 mmol/L (137-145) L 09/28/20 04:52 Potassium 4.2 mmol/L (3.6-5.0) 09/28/20 04:52 Chloride 102 mmol/L (98-107) 09/28/20 04:52 Carbon Dioxide 28 mmol/L (22-30) 09/28/20 04:52 Anion Gap 6 (5-19) 09/28/20 04:52 BUN 13 mg/dL (7-20) 09/28/20 04:52 Creatinine 0.69 mg/dL (0.52-1.25) 09/28/20 04:52 Est GFR ( Amer) > 60 (>60) 09/28/20 04:52 Est GFR (MDRD) Non-Af > 60 (>60) 09/28/20 04:52 Glucose 110 mg/dL (75-110) 09/28/20 04:52 Calcium 9.2 mg/dL (8.4-10.2) 09/28/20 04:52 Total Bilirubin 0.4 mg/dL (0.2-1.3) 09/27/20 00:13 Direct Bilirubin 0.3 mg/dL (0.0-0.4) 09/27/20 00:13 Neonat Total Bilirubin Not Reportable 09/27/20 00:13 Neonat Direct Bilirubin Not Reportable 09/27/20 00:13 Neonat Indirect Bili Not Reportable 09/27/20 00:13 AST 34 U/L (14-36) 09/27/20 00:13 ALT 30 U/L (<35) 09/27/20 00:13 Alkaline Phosphatase 116 U/L (38-126) 09/27/20 00:13 Creatine Kinase 43 U/L (30-135) 09/27/20 00:13 Troponin I < 0.012 ng/mL 09/27/20 00:13 Total Protein 7.8 g/dL (6.3-8.2) 09/27/20 00:13 Albumin 4.3 g/dL (3.5-5.0) 09/27/20 00:13 TSH 2.95 uIU/mL (0.47-4.68) 09/27/20 00:13 Urine Color YELLOW 09/27/20 01:43 Urine Appearance CLEAR 09/27/20 01:43 Urine pH 7.0 (5.0-9.0) 09/27/20 01:43 Ur Specific [place] 1.032 09/27/20 01:43 Urine Protein NEGATIVE mg/dL (NEGATIVE) 09/27/20 01:43 Urine Glucose (UA) NEGATIVE mg/dL (NEGATIVE) 09/27/20 01:43 Urine Ketones NEGATIVE mg/dL (NEGATIVE) 09/27/20 01:43 Urine Blood NEGATIVE (NEGATIVE) 09/27/20 01:43 Urine Nitrite NEGATIVE (NEGATIVE) 09/27/20 01:43 Urine Bilirubin NEGATIVE (NEGATIVE) 09/27/20 01:43 Urine Urobilinogen NEGATIVE mg/dL (<2.0) 09/27/20 01:43 Ur Leukocyte Esterase NEGATIVE (NEGATIVE) 09/27/20 01:43 Urine WBC (Auto) 0 /HPF 09/27/20 01:43 Urine RBC (Auto) 0 /HPF 09/27/20 01:43 Squamous Epi Cells Auto <1 /HPF 09/27/20 01:43 Urine Ascorbic Acid NEGATIVE (NEGATIVE) 09/27/20 01:43 09/27/20 00:13 Troponin I < 0.012 Impressions: Abdomen/Pelvis CT 09/26/20 23:51 IMPRESSION: 1. No evidence of acute traumatic injury in the chest, abdomen or pelvis. 2. Findings in the lungs and bones as above that may be related to the patient's presumed history of prior right breast malignancy. Recommend appropriate follow-up with correlation with any of the patient's prior imaging or short-term follow-up imaging to include possibly PET/CT if indicated. 3. Diverticulosis. 4. Emphysema. Chest CT 09/26/20 23:51 IMPRESSION: 1. No evidence of acute traumatic injury in the chest, abdomen or pelvis. 2. Findings in the lungs and bones as above that may be related to the patient's presumed history of prior right breast malignancy. Recommend appropriate follow-up with correlation with any of the patient's prior imaging or short-term follow-up imaging to include possibly PET/CT if indicated. 3. Diverticulosis. 4. Emphysema. Plan Plan of Treatment: - carvedilol dose increased - follow up with PCP Stroke Is this a Stroke Patient?: No Acute Heart Failure Is this a Heart Failure Patient?: No
== END 2020-09-28 10:30 | disposition home or self-care (01) ==
LOC: ER 23:02 → INTOOBSV 09-27 06:30 → EH 09-27 06:30 → 4W 09-27 08:09
PROVIDERS: ADMIT Student in an Organized Health Care Education/Training Program; ATTEND Internal Medicine
DX: I48.91 Unspecified atrial fibrillation (principal); R10.13 Epigastric pain; R07.89 Other chest pain; S20.214A Contusion of middle front wall of thorax, initial encounter; W01.190A Fall on same level from slipping, tripping and stumbling with subsequent striking against furniture, initial encounter; Y92.009 Unspecified place in unspecified non-institutional (private) residence as the place of occurrence of the external cause; R91.8 Other nonspecific abnormal finding of lung field; E78.5 Hyperlipidemia, unspecified; I10 Essential (primary) hypertension; Z85.3 Personal history of malignant neoplasm of breast; Z90.11 Acquired absence of right breast and nipple; Z86.73 Personal history of transient ischemic attack (TIA), and cerebral infarction without residual deficits; Z79.01 Long term (current) use of anticoagulants; Z87.891 Personal history of nicotine dependence; Z79.82 Long term (current) use of aspirin
CPT/HCPCS: 93005; 99285; 96361; 96374; 96375; 36415 ×2; 82550; 84443; 85025 ×2; 85610; 85730; 80048; 80053; 81001; 84484; 71260; 74177; 93010; G0378 ×3; A9270 ×14; J3490 ×2; J2270; J2405; J7030